=== PATIENT | female | born 1990 | race Caucasian/White ===

== ENCOUNTER → 2020-09-08 | Outpatient (REF) | payer OTHER | LOC: M SFHCWAGY 13:51 | PROVIDERS: ATTEND Advanced Practice Midwife | DX: Z12.4 Encounter for screening for malignant neoplasm of cervix (principal) ==

== ENCOUNTER → 2020-10-03 | Outpatient (CLI) | payer OTHER ==
[2020-10-03 09:27] LABS: FREE T4 1.16 NG/DL (0.76-1.46); THYROID STIMULATING HORMONE 2.71 uIU/ML (0.358-3.740)
[2020-10-03 11:07] LABS: HEMOGLOBIN A1c 5.2 %
== END ==
LOC: M LAB 07:50
PROVIDERS: ATTEND Advanced Practice Midwife
DX: R63.5 Abnormal weight gain (principal)